=== PATIENT | male | born 1940 | race Caucasian/White ===

== ENCOUNTER 2022-03-02 14:49 | Inpatient (IN) ==
[2022-03-03] MEDS ORDERED: Dextrose Gel 15 GM/37.5 ML TUBE PO PRN ×2 (02:50)
[2022-03-03] MEDS ORDERED: D5% in Water 1,000 ML IVC PRN (02:50)
[2022-03-03] MEDS ORDERED: *HR* Dextrose 50 % in Water (Syg) 50 ML SYRINGE IVP PRN (02:50)
[2022-03-03] MEDS ORDERED: polyethylene glycoL 3350 17 GM POWD.PACK PO PRN (03:00)
[2022-03-03] MEDS ORDERED: Vancomycin (wt based) 1,000 MG VIAL IVPB SCH (03:00)
[2022-03-03 06:01] LABS: Basophils % 0.3 %; Eosinophils # 0.1 K/mcL (0.0-0.6); Eosinophils % 1.2 %; Hematocrit 37.6 % (37.5-50.1); Hemoglobin 12.2 g/dL (12.9-16.9); Immature Granulocytes % 0.8 % (0-4); Lymphocytes # 1.7 K/mcL (0.6-4.6); Mean Corpuscular HGB Conc 32.4 g/dL (31.6-35.5); Mean Corpuscular Hemoglobin 28.8 pg (28.0-33.3); Mean Corpuscular Volume 88.9 fL (83.0-100.0); Mean Platelet Volume 9.8 fL (9.4-12.4); Monocytes # 0.9 K/mcL (0.0-1.3); Monocytes % 9.8 %; Neutrophils # 6.2 K/mcL (1.6-8.9); Platelet Count 222 K/mcL (140-400); Red Blood Count 4.23 M/mcL (4.19-5.50); Red Cell Distribution Width 13.8 % (11.5-14.5); Segmented Neutrophils % 68.9 %
[2022-03-03 06:16] LABS: BUN/Creatinine Ratio 19 (6-26); Blood Urea Nitrogen 12 mg/dL (8-23); Calcium 8.7 mg/dL (8.6-10.3); Carbon Dioxide 30 mEq/L (23-29); Chloride 102 mEq/L (98-107); Glucose 189 mg/dL (70-105); Osmolality,Calculated 291 (280-300); Potassium 3.5 mEq/L (3.5-5.1); Sodium 138 mEq/L (136-145); eGFR For African Americans > 60 (> 60); eGFR For Non-African Americans > 60 (> 60)
[2022-03-03] MEDS: *HR* Enoxaparin 40 MG/0.4 ML SYRINGE SQ SCH (06:56)
[2022-03-03] MEDS: carvediloL 25 MG TABLET PO SCH ×2 (08:25→15:55)
[2022-03-03] MEDS: *HR* Metformin 500 MG TABLET PO SCH ×2 (08:25→15:55)
[2022-03-03] MEDS: Benzonatate 100 MG CAPSULE PO PRN ×2 (08:25→22:19)
[2022-03-03] MEDS: tiZANidine 4 MG TABLET PO SCH ×3 (08:26→22:10)
[2022-03-03] MEDS: levETIRAcetam 250 MG TABLET PO SCH ×2 (08:26→22:05)
[2022-03-03] MEDS: Gabapentin 300 MG CAPSULE PO SCH ×3 (08:27→22:10)
[2022-03-03] MEDS: Piperacillin/Tazobactam 3.375 GM in 0.9 % Sodium Chloride Mini Bag 100 ML IVPB SCH ×2 (08:27→15:55)
[2022-03-03] MEDS: Erythromycin OPTH Oint RIGHT EYE SCH ×3 (08:29→22:15)
[2022-03-03] MEDS: Loratadine 10 MG TABLET PO SCH (08:29)
[2022-03-03] MEDS: (Dulaglutide [Trulicity] 0.75 MG/0.5 ML Pen.Injctr) SUBQ SCH (08:29)
[2022-03-03] MEDS: Insulin LISPRO 300 UNITS/3 ML VIAL SUBQ SCH ×4 (08:41→21:23)
[2022-03-03] MEDS ORDERED: Loratadine 10 MG TABLET PO SCH (09:00)
[2022-03-03] MEDS ORDERED: lisinopriL 10 MG TABLET PO SCH (09:00)
[2022-03-03 15:24] LABS: Bilirubin,Urine Negative (Negative); Blood,Urine Negative (Negative); Clarity,Urine Clear (Clear); Color,Urine Yellow (Yellow); Glucose,Urine (UA) Normal (Normal); Ketones,Urine Negative (Negative); Leukocyte Esterase,Urine Negative (Negative); Nitrite,Urine Negative (Negative); Protein,Urine Negative (Neg-Trace); Specific Gravity,Urine 1.015 (1.010-1.025); Urobilinogen,Urine Normal (Normal)
[2022-03-03] MEDS ORDERED: Vancomycin 1,500 MG/265 ML IV.SOLN IVPB SCH ×2 (19:00→20:00)
[2022-03-03] MEDS: Insulin DETEMIR 100 UNIT/ML X5UNITS SUBQ SCH (22:03)
[2022-03-03] MEDS: Mirtazapine 15 MG TABLET PO SCH (22:15)
[2022-03-03] MEDS: Melatonin 3 MG TABLET PO PRN (22:18)
[2022-03-03] MEDS: Sennosides/Docusate Sodium TABLET PO PRN (22:19)
[2022-03-04] MEDS: *HR* Enoxaparin 40 MG/0.4 ML SYRINGE SQ SCH (04:54)
[2022-03-04 05:24] LABS: eGFR For African Americans > 60 (> 60); eGFR For Non-African Americans > 60 (> 60)
[2022-03-04] MEDS ORDERED: Vancomycin 1,500 MG/265 ML IV.SOLN IVPB SCH (08:00)
[2022-03-04] MEDS: Insulin LISPRO 300 UNITS/3 ML VIAL SUBQ SCH ×4 (09:40→22:13)
[2022-03-04] MEDS: *HR* Metformin 500 MG TABLET PO SCH ×2 (09:42→16:57)
[2022-03-04] MEDS: levETIRAcetam 250 MG TABLET PO SCH ×2 (09:42→22:08)
[2022-03-04] MEDS: Gabapentin 300 MG CAPSULE PO SCH ×3 (09:42→22:07)
[2022-03-04] MEDS: carvediloL 25 MG TABLET PO SCH ×2 (09:42→16:58)
[2022-03-04] MEDS: Erythromycin OPTH Oint RIGHT EYE SCH ×3 (09:43→22:07)
[2022-03-04] MEDS: Furosemide 40 MG TABLET PO SCH (09:43)
[2022-03-04] MEDS: tiZANidine 4 MG TABLET PO SCH ×3 (09:43→22:08)
[2022-03-04] MEDS: Loratadine 10 MG TABLET PO SCH (09:43)
[2022-03-04] MEDS: lisinopriL 20 MG TABLET PO SCH (09:43)
[2022-03-04 11:29] LABS: Basophils % 0.3 %; Eosinophils # 0.2 K/mcL (0.0-0.6); Eosinophils % 1.8 %; Hematocrit 36.7 % (37.5-50.1); Hemoglobin 11.8 g/dL (12.9-16.9); Immature Granulocytes % 0.8 % (0-4); Lymphocytes # 1.8 K/mcL (0.6-4.6); Lymphocytes % 19.8 %; Mean Corpuscular HGB Conc 32.2 g/dL (31.6-35.5); Mean Corpuscular Hemoglobin 28.9 pg (28.0-33.3); Mean Platelet Volume 9.9 fL (9.4-12.4); Monocytes # 0.8 K/mcL (0.0-1.3); Monocytes % 8.8 %; Neutrophils # 6.1 K/mcL (1.6-8.9); Platelet Count 236 K/mcL (140-400); Red Blood Count 4.08 M/mcL (4.19-5.50); Red Cell Distribution Width 14.3 % (11.5-14.5); Segmented Neutrophils % 68.5 %; White Blood Count 8.9 K/mcL (4.3-11.1)
[2022-03-04 11:46] LABS: Alanine Aminotransferase 12 Units/L (7-52); Albumin 2.8 g/dL (3.5-5.7); Alkaline Phosphatase 47 Units/L (34-104); Aspartate Amino Transferase 18 Units/L (13-39); BUN/Creatinine Ratio 17 (6-26); Bilirubin,Total 0.8 mg/dL (0.3-1.0); Blood Urea Nitrogen 12 mg/dL (8-23); Calcium 8.6 mg/dL (8.6-10.3); Carbon Dioxide 32 mEq/L (23-29); Chloride 101 mEq/L (98-107); Globulin 2.8 g/dL (2.4-3.5); Glucose 118 mg/dL (70-105); Osmolality,Calculated 287 (280-300); Sodium 138 mEq/L (136-145); Total Protein 5.6 g/dL (6.4-8.9); eGFR For African Americans > 60 (> 60); eGFR For Non-African Americans > 60 (> 60)
[2022-03-04] MEDS: Bisacodyl 10 MG RECTAL SUPPOSITORY RC SCH (15:18)
[2022-03-04] MEDS: Sennosides/Docusate Sodium TABLET PO PRN (22:08)
[2022-03-04] MEDS: Mirtazapine 15 MG TABLET PO SCH (22:08)
[2022-03-04] MEDS: Melatonin 3 MG TABLET PO PRN (22:08)
[2022-03-04] MEDS: Benzonatate 100 MG CAPSULE PO PRN (22:08)
[2022-03-04] MEDS: Insulin DETEMIR 100 UNIT/ML X5UNITS SUBQ SCH (22:11)
[2022-03-05] MEDS: *HR* Enoxaparin 40 MG/0.4 ML SYRINGE SQ SCH (04:13)
[2022-03-05 04:49] LABS: eGFR For African Americans > 60 (> 60); eGFR For Non-African Americans > 60 (> 60)
[2022-03-05] MEDS: Insulin LISPRO 300 UNITS/3 ML VIAL SUBQ SCH ×4 (08:24→21:18)
[2022-03-05] MEDS: *HR* Metformin 500 MG TABLET PO SCH ×2 (08:41→16:18)
[2022-03-05] MEDS: Gabapentin 300 MG CAPSULE PO SCH ×3 (08:41→21:13)
[2022-03-05] MEDS: Furosemide 40 MG TABLET PO SCH (08:42)
[2022-03-05] MEDS: tiZANidine 4 MG TABLET PO SCH ×3 (08:42→21:14)
[2022-03-05] MEDS: Bisacodyl 10 MG RECTAL SUPPOSITORY RC SCH (08:42)
[2022-03-05] MEDS: carvediloL 25 MG TABLET PO SCH ×2 (08:42→16:18)
[2022-03-05] MEDS: Loratadine 10 MG TABLET PO SCH (08:42)
[2022-03-05] MEDS: levETIRAcetam 250 MG TABLET PO SCH ×2 (08:42→21:13)
[2022-03-05] MEDS: lisinopriL 20 MG TABLET PO SCH (08:42)
[2022-03-05] MEDS: Erythromycin OPTH Oint RIGHT EYE SCH ×3 (08:43→21:15)
[2022-03-05] MEDS: Insulin DETEMIR 100 UNIT/ML X5UNITS SUBQ SCH (21:14)
[2022-03-05] MEDS: Mirtazapine 15 MG TABLET PO SCH (21:14)
[2022-03-05] MEDS: Benzonatate 100 MG CAPSULE PO PRN (21:14)
[2022-03-06] MEDS: Nystatin POWDER 30 GM BOTTLE TP PRN (01:15)
[2022-03-06] MEDS: *HR* Enoxaparin 40 MG/0.4 ML SYRINGE SQ SCH (04:21)
[2022-03-06 04:43] LABS: eGFR For African Americans > 60 (> 60); eGFR For Non-African Americans > 60 (> 60)
[2022-03-06] MEDS: Insulin LISPRO 300 UNITS/3 ML VIAL SUBQ SCH ×4 (07:37→20:15)
[2022-03-06] MEDS: levETIRAcetam 250 MG TABLET PO SCH ×2 (09:13→20:04)
[2022-03-06] MEDS: Bisacodyl 10 MG RECTAL SUPPOSITORY RC SCH (09:13)
[2022-03-06] MEDS: Gabapentin 300 MG CAPSULE PO SCH ×3 (09:13→20:04)
[2022-03-06] MEDS: *HR* Metformin 500 MG TABLET PO SCH ×2 (09:13→15:13)
[2022-03-06] MEDS: tiZANidine 4 MG TABLET PO SCH ×3 (09:14→20:06)
[2022-03-06] MEDS: lisinopriL 20 MG TABLET PO SCH (09:14)
[2022-03-06] MEDS: carvediloL 25 MG TABLET PO SCH ×2 (09:14→15:12)
[2022-03-06] MEDS: Loratadine 10 MG TABLET PO SCH (09:14)
[2022-03-06] MEDS: Furosemide 40 MG TABLET PO SCH (09:14)
[2022-03-06] MEDS: Erythromycin OPTH Oint RIGHT EYE SCH ×3 (09:14→20:06)
[2022-03-06] MEDS: Melatonin 3 MG TABLET PO PRN (20:05)
[2022-03-06] MEDS: Acetaminophen 325 MG TABLET PO PRN (20:05)
[2022-03-06] MEDS: Mirtazapine 15 MG TABLET PO SCH (20:06)
[2022-03-06] MEDS: Insulin DETEMIR 100 UNIT/ML X5UNITS SUBQ SCH (20:17)
[2022-03-07 04:49] LABS: Basophils % 0.3 %; Eosinophils # 0.2 K/mcL (0.0-0.6); Eosinophils % 2.2 %; Hematocrit 36.2 % (37.5-50.1); Hemoglobin 11.7 g/dL (12.9-16.9); Immature Granulocytes % 0.9 % (0-4); Lymphocytes # 2.1 K/mcL (0.6-4.6); Lymphocytes % 23.7 %; Mean Corpuscular HGB Conc 32.3 g/dL (31.6-35.5); Mean Corpuscular Hemoglobin 29.2 pg (28.0-33.3); Mean Corpuscular Volume 90.3 fL (83.0-100.0); Mean Platelet Volume 10.7 fL (9.4-12.4); Monocytes # 0.8 K/mcL (0.0-1.3); Monocytes % 9.3 %; Neutrophils # 5.7 K/mcL (1.6-8.9); Platelet Count 197 K/mcL (140-400); Red Blood Count 4.01 M/mcL (4.19-5.50); Red Cell Distribution Width 14.5 % (11.5-14.5); Segmented Neutrophils % 63.6 %; White Blood Count 8.9 K/mcL (4.3-11.1)
[2022-03-07 05:01] LABS: BUN/Creatinine Ratio 17 (6-26); Blood Urea Nitrogen 13 mg/dL (8-23); Calcium 8.4 mg/dL (8.6-10.3); Carbon Dioxide 32 mEq/L (23-29); Chloride 100 mEq/L (98-107); Glucose 150 mg/dL (70-105); Osmolality,Calculated 289 (280-300); Potassium 3.8 mEq/L (3.5-5.1); Sodium 138 mEq/L (136-145); eGFR For African Americans > 60 (> 60); eGFR For Non-African Americans > 60 (> 60)
[2022-03-07] MEDS: *HR* Enoxaparin 40 MG/0.4 ML SYRINGE SQ SCH (06:18)
[2022-03-07] MEDS: Insulin LISPRO 300 UNITS/3 ML VIAL SUBQ SCH ×4 (09:11→20:01)
[2022-03-07] MEDS: Bisacodyl 10 MG RECTAL SUPPOSITORY RC SCH (09:12)
[2022-03-07] MEDS: Gabapentin 300 MG CAPSULE PO SCH ×3 (09:12→20:00)
[2022-03-07] MEDS: *HR* Metformin 500 MG TABLET PO SCH ×2 (09:12→16:02)
[2022-03-07] MEDS: Loratadine 10 MG TABLET PO SCH (09:13)
[2022-03-07] MEDS: Furosemide 40 MG TABLET PO SCH (09:13)
[2022-03-07] MEDS: Erythromycin OPTH Oint RIGHT EYE SCH ×3 (09:13→19:59)
[2022-03-07] MEDS: lisinopriL 20 MG TABLET PO SCH (09:13)
[2022-03-07] MEDS: carvediloL 25 MG TABLET PO SCH ×2 (09:13→16:20)
[2022-03-07] MEDS: levETIRAcetam 250 MG TABLET PO SCH ×2 (09:13→20:01)
[2022-03-07] MEDS: tiZANidine 4 MG TABLET PO SCH ×3 (09:13→19:59)
[2022-03-07] MEDS: Mirtazapine 15 MG TABLET PO SCH (19:59)
[2022-03-07] MEDS: Acetaminophen 325 MG TABLET PO PRN (20:00)
[2022-03-07] MEDS: Insulin DETEMIR 100 UNIT/ML X5UNITS SUBQ SCH (20:01)
[2022-03-08] MEDS: *HR* Enoxaparin 40 MG/0.4 ML SYRINGE SQ SCH (08:00)
[2022-03-08] MEDS: *HR* Metformin 500 MG TABLET PO SCH ×2 (08:01→16:00)
[2022-03-08] MEDS: tiZANidine 4 MG TABLET PO SCH ×3 (08:01→23:28)
[2022-03-08] MEDS: Acetaminophen 325 MG TABLET PO PRN ×3 (08:01→23:27)
[2022-03-08] MEDS: levETIRAcetam 250 MG TABLET PO SCH ×2 (08:01→23:27)
[2022-03-08] MEDS: Gabapentin 300 MG CAPSULE PO SCH ×3 (08:01→23:28)
[2022-03-08] MEDS: lisinopriL 20 MG TABLET PO SCH (08:01)
[2022-03-08] MEDS: carvediloL 25 MG TABLET PO SCH ×2 (08:01→16:00)
[2022-03-08] MEDS: Loratadine 10 MG TABLET PO SCH (08:01)
[2022-03-08] MEDS: Furosemide 40 MG TABLET PO SCH (08:02)
[2022-03-08] MEDS: Bisacodyl 10 MG RECTAL SUPPOSITORY RC SCH (08:02)
[2022-03-08] MEDS: Insulin LISPRO 300 UNITS/3 ML VIAL SUBQ SCH ×4 (08:02→23:28)
[2022-03-08] MEDS: Hydrocortisone Acetate 25 MG RECTAL SUPPOSITORY RC PRN (08:02)
[2022-03-08] MEDS: Erythromycin OPTH Oint RIGHT EYE SCH ×3 (08:02→23:29)
[2022-03-08] MEDS: Nystatin POWDER 30 GM BOTTLE TP PRN (15:59)
[2022-03-08] MEDS: Nystatin POWDER 30 GM BOTTLE TP SCH ×2 (16:26→23:44)
[2022-03-08] MEDS: Insulin DETEMIR 100 UNIT/ML X5UNITS SUBQ SCH (23:28)
[2022-03-08] MEDS: Mirtazapine 15 MG TABLET PO SCH (23:28)
[2022-03-09] MEDS: *HR* Enoxaparin 40 MG/0.4 ML SYRINGE SQ SCH (06:03)
[2022-03-09] MEDS: Insulin LISPRO 300 UNITS/3 ML VIAL SUBQ SCH ×4 (07:25→19:30)
[2022-03-09] MEDS: lisinopriL 20 MG TABLET PO SCH (08:38)
[2022-03-09] MEDS: tiZANidine 4 MG TABLET PO SCH ×3 (08:38→21:47)
[2022-03-09] MEDS: carvediloL 25 MG TABLET PO SCH ×2 (08:38→15:44)
[2022-03-09] MEDS: *HR* Metformin 500 MG TABLET PO SCH ×2 (08:38→15:43)
[2022-03-09] MEDS: levETIRAcetam 250 MG TABLET PO SCH ×2 (08:38→21:43)
[2022-03-09] MEDS: Furosemide 40 MG TABLET PO SCH (08:38)
[2022-03-09] MEDS: Bisacodyl 10 MG RECTAL SUPPOSITORY RC SCH (08:38)
[2022-03-09] MEDS: Loratadine 10 MG TABLET PO SCH (08:38)
[2022-03-09] MEDS: Nystatin POWDER 30 GM BOTTLE TP SCH ×3 (08:39→19:51)
[2022-03-09] MEDS: Erythromycin OPTH Oint RIGHT EYE SCH ×3 (08:39→19:46)
[2022-03-09] MEDS: Gabapentin 300 MG CAPSULE PO SCH ×3 (08:39→21:41)
[2022-03-09] MEDS: Mirtazapine 15 MG TABLET PO SCH (21:44)
[2022-03-09] MEDS: Melatonin 3 MG TABLET PO PRN (21:45)
[2022-03-09] MEDS: Sennosides/Docusate Sodium TABLET PO PRN (21:47)
[2022-03-09] MEDS: Insulin DETEMIR 100 UNIT/ML X5UNITS SUBQ SCH (21:48)
[2022-03-10] MEDS: *HR* Enoxaparin 40 MG/0.4 ML SYRINGE SQ SCH (05:04)
[2022-03-10] MEDS: Insulin LISPRO 300 UNITS/3 ML VIAL SUBQ SCH ×4 (08:40→22:37)
[2022-03-10] MEDS: Bisacodyl 10 MG RECTAL SUPPOSITORY RC SCH (08:46)
[2022-03-10] MEDS: Loratadine 10 MG TABLET PO SCH (08:54)
[2022-03-10] MEDS: Furosemide 40 MG TABLET PO SCH (08:54)
[2022-03-10] MEDS: carvediloL 25 MG TABLET PO SCH ×2 (08:54→15:57)
[2022-03-10] MEDS: levETIRAcetam 250 MG TABLET PO SCH ×2 (08:54→22:31)
[2022-03-10] MEDS: tiZANidine 4 MG TABLET PO SCH ×3 (08:54→22:34)
[2022-03-10] MEDS: *HR* Metformin 500 MG TABLET PO SCH ×2 (08:54→15:57)
[2022-03-10] MEDS: Gabapentin 300 MG CAPSULE PO SCH ×3 (08:55→22:30)
[2022-03-10] MEDS: Nystatin POWDER 30 GM BOTTLE TP SCH ×3 (08:55→22:36)
[2022-03-10] MEDS: lisinopriL 20 MG TABLET PO SCH (08:55)
[2022-03-10] MEDS: Erythromycin OPTH Oint RIGHT EYE SCH ×3 (08:56→22:35)
[2022-03-10] MEDS: (Dulaglutide [Trulicity] 0.75 MG/0.5 ML Pen.Injctr) SUBQ SCH (12:22)
[2022-03-10] MEDS: Mirtazapine 15 MG TABLET PO SCH (22:33)
[2022-03-10] MEDS: Insulin DETEMIR 100 UNIT/ML X5UNITS SUBQ SCH (22:35)
[2022-03-10] MEDS: Melatonin 3 MG TABLET PO PRN (22:35)
[2022-03-11] MEDS: *HR* Enoxaparin 40 MG/0.4 ML SYRINGE SQ SCH (05:22)
[2022-03-11] MEDS: Insulin LISPRO 300 UNITS/3 ML VIAL SUBQ SCH ×3 (08:03→16:11)
[2022-03-11] MEDS: carvediloL 25 MG TABLET PO SCH ×2 (08:07→16:07)
[2022-03-11] MEDS: lisinopriL 20 MG TABLET PO SCH (08:07)
[2022-03-11] MEDS: Furosemide 40 MG TABLET PO SCH (08:07)
[2022-03-11] MEDS: levETIRAcetam 250 MG TABLET PO SCH (08:07)
[2022-03-11] MEDS: tiZANidine 4 MG TABLET PO SCH ×2 (08:07→16:07)
[2022-03-11] MEDS: Gabapentin 300 MG CAPSULE PO SCH ×2 (08:07→16:07)
[2022-03-11] MEDS: Hydrocortisone Acetate 25 MG RECTAL SUPPOSITORY RC PRN (08:08)
[2022-03-11] MEDS: Bisacodyl 10 MG RECTAL SUPPOSITORY RC SCH (08:08)
[2022-03-11] MEDS: *HR* Metformin 500 MG TABLET PO SCH ×2 (08:08→16:07)
[2022-03-11] MEDS: Acetaminophen 325 MG TABLET PO PRN (08:08)
[2022-03-11] MEDS: Loratadine 10 MG TABLET PO SCH (08:09)
[2022-03-11] MEDS: Nystatin POWDER 30 GM BOTTLE TP SCH ×2 (08:10→16:07)
[2022-03-11] MEDS: Erythromycin OPTH Oint RIGHT EYE SCH ×2 (08:10→16:07)
[2022-03-11 11:19] VITALS: RESP 18
[2022-03-11 14:40] LABS: Basophils % 0.4 %; Eosinophils # 0.2 K/mcL (0.0-0.6); Eosinophils % 2.1 %; Hematocrit 38.8 % (37.5-50.1); Hemoglobin 12.4 g/dL (12.9-16.9); Immature Granulocytes % 0.6 % (0-4); Lymphocytes # 1.9 K/mcL (0.6-4.6); Lymphocytes % 22.6 %; Mean Corpuscular Hemoglobin 28.8 pg (28.0-33.3); Mean Platelet Volume 10.4 fL (9.4-12.4); Monocytes # 0.6 K/mcL (0.0-1.3); Monocytes % 7.3 %; Neutrophils # 5.5 K/mcL (1.6-8.9); Platelet Count 233 K/mcL (140-400); Red Blood Count 4.31 M/mcL (4.19-5.50); White Blood Count 8.2 K/mcL (4.3-11.1)
[2022-03-11 14:47] LABS: BUN/Creatinine Ratio 18 (6-26); Blood Urea Nitrogen 14 mg/dL (8-23); Calcium 8.5 mg/dL (8.6-10.3); Carbon Dioxide 30 mEq/L (23-29); Chloride 100 mEq/L (98-107); Glucose 137 mg/dL (70-105); Osmolality,Calculated 291 (280-300); Potassium 3.9 mEq/L (3.5-5.1); Sodium 139 mEq/L (136-145); eGFR For African Americans > 60 (> 60); eGFR For Non-African Americans > 60 (> 60)
[2022-03-11 16:18] VITALS: BP 150/72; PULSE 98; TEMP 98.4; O2SAT 98
[2022-03-11] MEDS ORDERED: Furosemide 20 MG/2 ML VIAL IVP ONE (18:00)
== END 2022-03-11 17:20 | disposition short-term general hospital (02) | DRG 177 ==
LOC: INPGRE 23:28
PROVIDERS: ADMIT Family Medicine; ATTEND Family Medicine